=== PATIENT | female | born 1945 | race Two or more races ===

== ENCOUNTER 2022-07-06 21:17 | Inpatient (IN) | payer MEDICARE ==
[~2022-07-06] VITALS: Ht 152.4 cm; Wt 48.5 kg
--- NOTE | 2022-07-06 21:30 | NUR ---
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 AAOx4 All needs attended. VSS. Left hip dressing intact, no ronnie. Abduction pillow in between legs. Fall precautions maintained. Lacey catheter intact draining yellow urine. I & O monitor. Hx of HTN, pacemaker, right hip surgery. Skin intact. Incontinent of large BM this shift. Kept clean and dry. Dr Null aware of patient's admission. HAYDEN Gonzalez also aware of patient's admission to Rehab. Was asked to reconcile meds. Patient has a Rt arm heplock #20 flushed well and patent. Prior to admission, she was transfused with 1 unit PRBC in S[place] with a hgb 7.4 Hct 23. Will monitor patient.
[2022-07-06] MEDS ORDERED: REMEDY ESSENTIAL ZINC PASTE 113 GM TOP PRN (22:00)
[2022-07-06] MEDS ORDERED: LOSA100T31 PO (22:44)
[2022-07-06] MEDS ORDERED: ENOX40DI SQ (22:44)
[2022-07-06] MEDS ORDERED: PANT40TA2 PO (22:44)
[2022-07-06] MEDS ORDERED: METO-356 PO (22:44)
[2022-07-06] MEDS ORDERED: HYDR20VI6 IV (22:44)
[2022-07-06] MEDS ORDERED: MORP2CAR IV (22:44)
[2022-07-06] MEDS ORDERED: ACET-2154 PO (22:44)
[2022-07-06] MEDS ORDERED: MAGN400O6 PO (22:44)
[2022-07-06] MEDS ORDERED: LACT-246 PO (22:44)
[2022-07-06] MEDS ORDERED: AMLO10TA59 PO (22:44)
[2022-07-06] MEDS ORDERED: ONDA4AMP IV (22:44)
[2022-07-06] MEDS ORDERED: HYDR-3972 PO (22:44)
[2022-07-07 07:31] VITALS: BP 126/72
[2022-07-07] MEDS ORDERED: ACETAMINOPHEN 325 MG TABLET-SA PATIENTS-PAIN ONLY PO PRN (08:15)
[2022-07-07] MEDS ORDERED: MAGNESIUM HYDROXIDE 30 ML LIQUID UDC PO PRN (08:15)
[2022-07-07] MEDS: OXYCODONE HCL 5 MG TABLET PO PRN ×3 (08:34→09:45)
[2022-07-07] MEDS ORDERED: ENOXAPARIN SODIUM 40 MG/0.4 ML DISP.SYRIN SQ SCH (09:00)
[2022-07-07] MEDS: LOSARTAN POTASSIUM 50 MG TABLET PO SCH (09:08)
[2022-07-07] MEDS: AMLODIPINE 10 MG TABLET PO SCH (09:09)
[2022-07-07] MEDS: METOPROLOL SUCCINATE XL 25 MG TAB.SR.24H PO SCH (09:34)
[2022-07-07] MEDS: ENOXAPARIN SODIUM 30 MG/0.3 ML DISP.SYRIN SUBCUT SCH (09:35)
[2022-07-07] MEDS: ENSURE ENLIVE (VAN) 240 ML LIQUID PO SCH ×2 (12:06→18:12)
[2022-07-07 16:00] VITALS: BP 108/49
[2022-07-07] MEDS: FERROUS SULFATE 325 MG TABEC PO SCH (17:21)
--- NOTE | 2022-07-07 19:21 | NUR ---
Patient alert and Ox4, able to verbalize her needs and follow directions. Medications were finalized by Dr. Otto Mata. Patient with s/p left hip surgery, site with clean DD in place. No s/s of bleeding noted. Assessed patient for pain and patient stated she is experiencing pain and stated pain level at 7-8/10, patient requested pain medication and upon offering pain medication as ordered based on her pain level. Patient refused medication. Medication was returned to [facility] as protocol. NPI done and reassessed patient's pain level and patient stated to be "ok" and comfortable. Patient ate and consumed fluids well. No c/o n/v. No s/s of hyp/HTN. Assisted to the bedside commode and had a BM and voided well. Care provided at routine intervals and as needed. Assisted patient to make a phone call to her daughter (Ava) all needs anticipated and met.
[2022-07-07 20:00] VITALS: BP 110/41
[2022-07-07] MEDS: DOCUSATE SODIUM 100 MG CAPSULE PO SCH (21:00)
--- NOTE | 2022-07-07 23:00 | NUR ---
1915- Patient alert and Ox4, able to verbalize her needs and follow directions. Patient with s/p left hip surgery, site with clean dressing in place. No signs of bleeding noted. The patient has an abductor pillow to prevent crossing of legs. The patient has a patent IV access 20g rfa. The patient has a clifford catheter that is clean, intact, and below the baldder. Care provided at routine intervals and as needed. Call light within reach, bed alarm on, two side rails up, bed at lowest position, and wheels locked. Will continue to monitor throughout the shift. 2200- The patient has no complains of pain. The patient request for water. Item is given to the patient. The patient has no sob or complains of pain. Will continue to monitor throughout the shift. 0200- The patient request for an extra pillow. Item is given to the patient. The patient has no sob. Will continue to monitor throughout the shift. 0500- The patient is resting comfortably. The patient has no complains of pain. Will continue to monitor throughout the shift.
[2022-07-08] MEDS: PANTOPRAZOLE SODIUM 40 MG TABLET.DR PO SCH (06:19)
[2022-07-08 06:35] VITALS: BP 123/51
[2022-07-08 07:36] VITALS: BP 121/43
[2022-07-08] MEDS: ENSURE ENLIVE (VAN) 240 ML LIQUID PO SCH ×3 (08:23→18:43)
[2022-07-08] MEDS: LOSARTAN POTASSIUM 50 MG TABLET PO SCH ×2 (09:00→09:03)
[2022-07-08] MEDS: FERROUS SULFATE 325 MG TABEC PO SCH ×2 (09:01→16:29)
[2022-07-08] MEDS: METOPROLOL SUCCINATE XL 25 MG TAB.SR.24H PO SCH ×2 (09:01→09:04)
[2022-07-08] MEDS: AMLODIPINE 10 MG TABLET PO SCH ×2 (09:02→09:04)
[2022-07-08] MEDS: ENOXAPARIN SODIUM 30 MG/0.3 ML DISP.SYRIN SUBCUT SCH (09:03)
[2022-07-08] MEDS: OXYCODONE HCL 5 MG TABLET PO PRN (10:46)
[2022-07-08 11:53] LABS: HEMATOCRIT 25.7 % (31.2-41.9); MEAN CORPUSCULAR HEMOGLOBIN 29.4 uug (24.7-32.8); MEAN CORPUSCULAR VOLUME 89.8 fL (75.5-95.3); PLATELET COUNT (AUTO) 235 K/uL (179-408)
[2022-07-08 12:14] LABS: CREATININE 1.1 mg/dL (0.6-1.3); POTASSIUM 4.1 mmol/L (3.5-5.1)
[2022-07-08 12:20] LABS: BILIRUBIN,TOTAL 0.3 mg/dL (0.2-1.0)
[2022-07-08 16:08] VITALS: BP 108/48
--- NOTE | 2022-07-08 19:05 | NUR ---
Patient A/Ox4, verbalizes her needs and follows directions. Medicated during shift PRN for her pain level needs as ordered by MD. and effective. Patient ate meals well and took fluids as offered; Patient rec'd PT/OT skilled services and roberto. fairly. Patient is continent of BM and uses bedside commode with one persons assist. Extensive assist provided with ADLS and at all times, dressing to left hip surgical site provided as ordered. All needs anticipated and met.
[2022-07-08 21:00] VITALS: BP 110/34
[2022-07-08] MEDS: DOCUSATE SODIUM 100 MG CAPSULE PO SCH (21:30)
--- NOTE | 2022-07-08 23:00 | NUR ---
1920- Patient alert and Ox4, able to verbalize her needs and follow directions. Patient with s/p left hip surgery, site with clean dressing in place. No signs of bleeding noted. The patient has an abductor pillow to prevent crossing of legs. The patient has a clifford catheter that is clean, intact, and below the bladder. Care provided at routine intervals and as needed. Call light within reach, bed alarm on, two side rails up, bed at lowest position, and wheels locked. Will continue to monitor throughout the shift. 0000- The patient has no complains of pain. The patient request for water. Item is given to the patient. The patient has no sob or complains of pain. Will continue to monitor throughout the shift. 0500- The patient is resting comfortably. The patient has no complains of pain. Will continue to monitor throughout the shift.
[2022-07-09 04:28] VITALS: BP 116/46
[2022-07-09] MEDS: PANTOPRAZOLE SODIUM 40 MG TABLET.DR PO SCH (06:23)
[2022-07-09 08:00] VITALS: BP 129/45
[2022-07-09] MEDS: ENOXAPARIN SODIUM 30 MG/0.3 ML DISP.SYRIN SUBCUT SCH (08:21)
[2022-07-09] MEDS: FERROUS SULFATE 325 MG TABEC PO SCH ×2 (09:15→16:24)
[2022-07-09] MEDS: ENSURE ENLIVE (VAN) 240 ML LIQUID PO SCH ×3 (09:15→16:25)
[2022-07-09] MEDS: AMLODIPINE 10 MG TABLET PO SCH (09:18)
[2022-07-09] MEDS: METOPROLOL SUCCINATE XL 25 MG TAB.SR.24H PO SCH (09:19)
--- NOTE | 2022-07-09 14:33 | NUR ---
INDIVIDUALIZED PLAN OF CARE
[2022-07-09 15:55] VITALS: BP 126/41
--- NOTE | 2022-07-09 16:25 | NUR ---
patient is alert, oriented x4, no sob, respirations are even nonlabored, skin warm and dry to touch, dressing changed to left hip incision, dry clean, no drainage, no bleeding, well approximated, clifford discontinued as per order and for bladder and bowel training. will continue to monitor.
[2022-07-09 20:41] VITALS: BP 115/36
[2022-07-09] MEDS: DOCUSATE SODIUM 100 MG CAPSULE PO SCH (21:00)
[2022-07-09] MEDS: ACETAMINOPHEN 325 MG TABLET PO PRN (21:20)
--- NOTE | 2022-07-09 23:00 | NUR ---
1924- Patient alert and Ox4, able to verbalize her needs and follow directions. Patient with s/p left hip surgery, site with clean dressing in place. No signs of bleeding noted. The patient has an abductor pillow to prevent crossing of legs. Care provided at routine intervals and as needed. Call light within reach, bed alarm on, two side rails up, bed at lowest position, and wheels locked. Will continue to monitor throughout the shift. 0100- The patient has no complains of pain. The patient request for water. Item is given to the patient. The patient has no sob or complains of pain. Will continue to monitor throughout the shift. 0600- The patient is resting comfortably. The patient has no complains of pain. Will continue to monitor throughout the shift.
[2022-07-10 04:30] VITALS: BP 114/46
[2022-07-10] MEDS: PANTOPRAZOLE SODIUM 40 MG TABLET.DR PO SCH (06:42)
[2022-07-10 07:46] VITALS: BP 128/41
[2022-07-10 08:00] VITALS: BP 116/5
[2022-07-10] MEDS: LOSARTAN POTASSIUM 50 MG TABLET PO SCH (09:00)
[2022-07-10] MEDS: FERROUS SULFATE 325 MG TABEC PO SCH ×2 (09:00→17:00)
[2022-07-10] MEDS: ENOXAPARIN SODIUM 30 MG/0.3 ML DISP.SYRIN SUBCUT SCH (09:00)
[2022-07-10] MEDS: OXYCODONE HCL 5 MG TABLET PO PRN (09:40)
[2022-07-10 16:37] VITALS: BP 113/57
[2022-07-10] MEDS: GLUCERNA SHAKE 237 ML CAN PO SCH (17:08)
--- NOTE | 2022-07-10 17:32 | NUR ---
SHIFT NOTE: RECEIVED PATIENT IN AM ALERT AND ORIENTED X4 PT WAS TAKING PT AND WAS IN SEVERE PAIN PT WAS GIVEN OXYIR 10MG PO AFTERWARDS CONTINUE PT. PT REFUSED TO MOVED TO ANOTHER ROOM " STATES I AM [place] CIT[place] AND INFORMED PATIENT SHE CAN STAY IN THE ROOM TOLD PATIENT IT DOESN'T HAVE A FUNCTIONAL PHONE SHE SAID SHE DID WANT TO BE MOVE. PT. Addendum: 07/10/22 at 1801 by [facility] IN[facility] RN11 RN PT SAID SHE DIDN'T WANT TO MOVE OUT OF HER ROOM SHE LIKE WHERE SHE IS. PT IS SITTING IN WHEEL CHAIR DIDN'T WANT TO GO BACK TO BED. WILL ENDORSETO NURSE NO SIGNS OF DISTRESS NOTED. WILL CONTINUE MONITOR FOR SAFETY AND FALLS.
[2022-07-10 20:00] VITALS: BP 119/47
[2022-07-10] MEDS: DOCUSATE SODIUM 100 MG CAPSULE PO SCH (21:00)
[2022-07-11 04:00] VITALS: BP 106/35
[2022-07-11] MEDS: OXYCODONE HCL 5 MG TABLET PO PRN (04:20)
[2022-07-11 08:06] VITALS: BP 143/76
[2022-07-11] MEDS: ENOXAPARIN SODIUM 30 MG/0.3 ML DISP.SYRIN SUBCUT SCH (08:18)
[2022-07-11] MEDS: AMLODIPINE 10 MG TABLET PO SCH (08:19)
[2022-07-11] MEDS: FERROUS SULFATE 325 MG TABEC PO SCH (08:19)
[2022-07-11] MEDS: LOSARTAN POTASSIUM 50 MG TABLET PO SCH (08:20)
[2022-07-11] MEDS: GLUCERNA SHAKE 237 ML CAN PO SCH ×2 (08:20→17:13)
[2022-07-11] MEDS: METOPROLOL SUCCINATE XL 25 MG TAB.SR.24H PO SCH (08:21)
--- NOTE | 2022-07-11 09:50 | NUR ---
0730-Rec'd patient in bed, awake, A/Ox4, verbalizes needs and follows directions, denies pain at this time. On R/A & roberto. well, no s/s of resp. distress. Oral fluids taken well. Call light at reach and encouraged to use it every time help is needed with good understanding. 0855-Patient ate 75% of her breakfast, roberto. well, denies any N/V/GI distress., Scheduled medication offered as ordered; patient refused to take:Cozaar, Norvasc, Toprol and Feosol. Risks vs benefits explained, good verbal demonstration in understanding recd'd from patient, offered medication x3. Informed patient that her blood pressure is 143/73, HR 63 & complaince4 with treatment and medication are important for the maintenance of hypertension DSE patient stated, "I do not have any problems with my blood pressure". Wishes and choices respected. Patient denies any headache, dizziness, N/V. Will monitor and follow up according plan of care.
--- NOTE | 2022-07-11 10:34 | NUR ---
0930-OOB ambulating in the hallway using a FWW and with PT, roberto well, actively able to participate in therapy.
[2022-07-11 16:39] VITALS: BP 159/63
[2022-07-11 16:42] VITALS: BP 121/42
[2022-07-11] MEDS: PANTOPRAZOLE SODIUM 40 MG TABLET.DR PO SCH (19:00)
--- NOTE | 2022-07-11 19:20 | NUR ---
Left hip surgical dressing changed. No s/s of bleeding or infection. Patient roberto. well, denies pain. Assisted to bedside commode as needed. Care provided at routine intervals and as needed. All needs anticipated and met in a promptly manner.
[2022-07-11 20:00] VITALS: BP 111/45
[2022-07-11] MEDS: DOCUSATE SODIUM 100 MG CAPSULE PO SCH (21:00)
[2022-07-12] MEDS: OXYCODONE HCL 5 MG TABLET PO PRN (01:59)
[2022-07-12 04:00] VITALS: BP 117/58
--- NOTE | 2022-07-12 06:00 | NUR ---
Patient asleep no sob no chest pain, complain of 8/10 pain on left hip, medicated for pain with effective results, kept clean dry and comfortable, cont to monitor.
[2022-07-12] MEDS: PANTOPRAZOLE SODIUM 40 MG TABLET.DR PO SCH ×2 (06:12→06:27)
[2022-07-12 07:42] VITALS: BP 124/44
[2022-07-12] MEDS: GLUCERNA SHAKE 237 ML CAN PO SCH ×2 (08:06→17:23)
[2022-07-12] MEDS: FERROUS SULFATE 325 MG TABEC PO SCH ×2 (08:38→16:36)
[2022-07-12] MEDS: METOPROLOL SUCCINATE XL 25 MG TAB.SR.24H PO SCH (08:38)
[2022-07-12] MEDS: AMLODIPINE 10 MG TABLET PO SCH (08:39)
[2022-07-12] MEDS: LOSARTAN POTASSIUM 50 MG TABLET PO SCH (08:39)
[2022-07-12] MEDS: ENOXAPARIN SODIUM 30 MG/0.3 ML DISP.SYRIN SUBCUT SCH (08:43)
[2022-07-12 16:00] VITALS: BP 135/36
--- NOTE | 2022-07-12 19:17 | NUR ---
Patient with no ALONDRA during shift, continues under rehab for PT/OT skilled services. Patient tolerated therapy well and actively able to participate in therapy. Fall precautions observed. Call light answered promptly and timely. Assisted patient with ADLS and at all times. Patient tolerated meals well and took fluids as offered. Compliant with medication and treatment. Left hip surgical site healing well, no bleeding or s/s of infection noted. Treatment done as ordered/picture updated; endorsed to incoming relieving RN. All needs anticipated and met.
[2022-07-12 20:00] VITALS: BP 111/51
[2022-07-12] MEDS: DOCUSATE SODIUM 100 MG CAPSULE PO SCH (21:21)
[2022-07-13 04:00] VITALS: BP 131/45
--- NOTE | 2022-07-13 04:53 | NUR ---
Pt been in stable condition, vital signs within normal level, call light within reach, bed in low position. Pt has stool OB collection, no poop yet. will notify the morning RN.
--- NOTE | 2022-07-13 05:27 | NUR ---
Pt refused the abduction pillow between the legs, asked why, she said because i can't cross my legs. Explained pt that pillow for that to prevent crossing, but she said "no'.
[2022-07-13] MEDS: PANTOPRAZOLE SODIUM 40 MG TABLET.DR PO SCH (07:00)
--- NOTE | 2022-07-13 07:14 | NUR ---
Stool OB collected.
[2022-07-13 08:04] LABS: HEMATOCRIT 28.7 % (31.2-41.9); MEAN CORPUSCULAR HEMOGLOBIN 29.6 uug (24.7-32.8); MEAN CORPUSCULAR VOLUME 90.5 fL (75.5-95.3); PLATELET COUNT (AUTO) 376 K/uL (179-408)
[2022-07-13] MEDS: GLUCERNA SHAKE 237 ML CAN PO SCH ×2 (08:12→16:58)
[2022-07-13 08:30] LABS: THYROID STIMULATING HORMONE 1.908 mIU/mL (0.358-3.740)
[2022-07-13 08:45] LABS: BILIRUBIN,TOTAL 0.3 mg/dL (0.2-1.0); MAGNESIUM 2.2 mg/dL (1.8-2.4); POTASSIUM 4.1 mmol/L (3.5-5.1); TOTAL PROTEIN, SERUM 7.2 g/dL (6.4-8.2)
[2022-07-13 09:00] VITALS: BP 140/49
[2022-07-13] MEDS: FERROUS SULFATE 325 MG TABEC PO SCH ×3 (09:00→16:58)
[2022-07-13] MEDS: LOSARTAN POTASSIUM 50 MG TABLET PO SCH ×2 (09:00→09:15)
[2022-07-13] MEDS: AMLODIPINE 10 MG TABLET PO SCH ×2 (09:00→09:15)
--- NOTE | 2022-07-13 09:15 | NUR ---
Pt refused ALL her morning medication. I asked her about each one individually and she refused each one. and ARU team aware.
[2022-07-13] MEDS: METOPROLOL SUCCINATE XL 25 MG TAB.SR.24H PO SCH ×2 (09:16→09:59)
[2022-07-13] MEDS: ENOXAPARIN SODIUM 30 MG/0.3 ML DISP.SYRIN SUBCUT SCH ×2 (09:18→09:59)
[2022-07-13 10:12] LABS: *OCCULT BLOOD STOOL NEGATIVE (NEGATIVE)
--- NOTE | 2022-07-13 14:48 | NUR ---
INTERDISCIPLINARY TEAM CONFERENCE
[2022-07-13 16:00] VITALS: BP 118/52
--- NOTE | 2022-07-13 16:04 | NUR ---
Pt stated that she has peed 3 times this shift, including recently. No bladder scan needed at this time.
[2022-07-13] MEDS: OXYCODONE HCL 5 MG TABLET PO PRN (18:40)
[2022-07-13] MEDS: DOCUSATE SODIUM 100 MG CAPSULE PO SCH (21:35)
[2022-07-13 23:54] VITALS: BP 101/41
--- NOTE | 2022-07-14 05:59 | NUR ---
Pt refusing the Meds, by stating that it is damaging her stomach. Pt able to pee, no catheterization needed in this time. All needs are attended and met.
[2022-07-14 06:27] VITALS: BP 118/44
[2022-07-14] MEDS: PANTOPRAZOLE SODIUM 40 MG TABLET.DR PO SCH (07:00)
[2022-07-14 08:00] VITALS: BP 133/48
[2022-07-14] MEDS: GLUCERNA SHAKE 237 ML CAN PO SCH ×2 (08:16→17:34)
[2022-07-14] MEDS: AMLODIPINE 10 MG TABLET PO SCH (08:16)
[2022-07-14] MEDS: FERROUS SULFATE 325 MG TABEC PO SCH ×2 (08:16→16:35)
[2022-07-14] MEDS: LOSARTAN POTASSIUM 50 MG TABLET PO SCH (08:16)
[2022-07-14] MEDS: METOPROLOL SUCCINATE XL 25 MG TAB.SR.24H PO SCH (08:17)
[2022-07-14] MEDS: ENOXAPARIN SODIUM 30 MG/0.3 ML DISP.SYRIN SUBCUT SCH (08:17)
[2022-07-14] MEDS: NUTRISOURCE FIBER 4 GM PACKET PO SCH (15:01)
[2022-07-14 16:00] VITALS: BP 117/42
--- NOTE | 2022-07-14 19:48 | NUR ---
RECEIVED REPORT FROM JL MAYEN.
[2022-07-14 20:00] VITALS: BP 102/46
[2022-07-14] MEDS: DOCUSATE SODIUM 100 MG CAPSULE PO SCH (20:36)
[2022-07-15 04:00] VITALS: BP 115/49
[2022-07-15] MEDS: PANTOPRAZOLE SODIUM 40 MG TABLET.DR PO SCH (06:40)
--- NOTE | 2022-07-15 07:20 | NUR ---
REPORT GIVEN TO ALPHONSO MAYEN.
[2022-07-15 08:00] VITALS: BP 130/44
--- NOTE | 2022-07-15 08:00 | NUR ---
0730-REC'D PATIENT IN BED, AWAKE, A/OX3-4, PATIENT IN BED IN A SITTING POSITION AND DRINKING WATER. PATIENT DENIES ANY PAIN, NO RESPIRATORY DISTRESS NOTED. SAFETY MEASURES IN PLACE AND CALL LIGHT AT REACH, ENCOURAGED TO USE IT EVERY TIME HELP IS NEEDED.
[2022-07-15] MEDS: GLUCERNA SHAKE 237 ML CAN PO SCH ×2 (08:08→17:02)
[2022-07-15] MEDS: FERROUS SULFATE 325 MG TABEC PO SCH ×2 (09:02→17:01)
[2022-07-15] MEDS: AMLODIPINE 10 MG TABLET PO SCH (09:03)
[2022-07-15] MEDS: LOSARTAN POTASSIUM 50 MG TABLET PO SCH (09:03)
[2022-07-15] MEDS: METOPROLOL SUCCINATE XL 25 MG TAB.SR.24H PO SCH (09:03)
[2022-07-15] MEDS: ENOXAPARIN SODIUM 30 MG/0.3 ML DISP.SYRIN SUBCUT SCH (09:04)
[2022-07-15] MEDS: NUTRISOURCE FIBER 4 GM PACKET PO SCH (09:05)
[2022-07-15 16:00] VITALS: BP 103/51
--- NOTE | 2022-07-15 18:40 | NUR ---
Patient in bed, awake, A/Ox3, continues under rehab for PT/OT skilled services and making good progress. Patient's daughter visited during shift/in AM during therapy. Patient ambulated in the hallway, using FWW and a therapist assist. No ALONDRA noted. Assisted with ADLs and as needed.LT hip s/p ORIF surgical site, dressing changed. Affected area healing well, no bleeding or drainage noted. All needs anticipated and met. Endorsed to incoming relieving RN.
[2022-07-15 20:00] VITALS: BP 114/46
[2022-07-15] MEDS: DOCUSATE SODIUM 100 MG CAPSULE PO SCH (20:35)
[2022-07-16 04:00] VITALS: BP 118/49
--- NOTE | 2022-07-16 05:40 | NUR ---
AAOxs2-3 Patient non compliant with care and meds. Refused to have male ALUMINUM HYDROXIDE PROCESS OPERATOR. Incontinent of bowel and bladder. No BM this shift. Patient been refusing meds. Offerred pain meds, refused to take. Will monitor patient. No acute distress noted. Fall precautions maintained. Call ca within reach. Siderails up for safety. VSS.
[2022-07-16] MEDS: PANTOPRAZOLE SODIUM 40 MG TABLET.DR PO SCH (06:08)
[2022-07-16 08:00] VITALS: BP 110/54
[2022-07-16] MEDS: GLUCERNA SHAKE 237 ML CAN PO SCH ×2 (08:45→17:34)
[2022-07-16] MEDS: LOSARTAN POTASSIUM 50 MG TABLET PO SCH (09:00)
[2022-07-16] MEDS: AMLODIPINE 10 MG TABLET PO SCH (10:00)
[2022-07-16] MEDS: NUTRISOURCE FIBER 4 GM PACKET PO SCH (10:00)
[2022-07-16] MEDS: METOPROLOL SUCCINATE XL 25 MG TAB.SR.24H PO SCH (10:00)
[2022-07-16] MEDS: FERROUS SULFATE 325 MG TABEC PO SCH ×2 (10:00→17:00)
[2022-07-16] MEDS: ENOXAPARIN SODIUM 30 MG/0.3 ML DISP.SYRIN SUBCUT SCH (10:00)
--- NOTE | 2022-07-16 18:55 | NUR ---
SHIFT NOTE: RECEIVED REPORT FROM PERSONNEL ADVISER NURSE PATIENT IS ALERT AND ORIENTED X4 NO SIGNS OF DISTRESS NOTED PATIENT REFUSED ALL MEDICATION AND WAS ASSISTED OFF BED SIDE COMMODE HAD LARGE STOOL NO SIGNS OF DISTRESS NOTED. WILL CONTINUE TO MONITOR FOR SAFETY.AND ENDORSE TO PERSONNEL ADVISER NURSE.
[2022-07-16 20:30] VITALS: BP 151/48
[2022-07-16] MEDS: DOCUSATE SODIUM 100 MG CAPSULE PO SCH (21:25)
[2022-07-17] MEDS: HYDROCODONE/APAP 5-325MG TABLET PO PRN ×2 (00:37→22:10)
[2022-07-17 04:39] VITALS: BP 111/70
[2022-07-17] MEDS: PANTOPRAZOLE SODIUM 40 MG TABLET.DR PO SCH (07:00)
[2022-07-17 07:48] VITALS: BP 124/48
--- NOTE | 2022-07-17 08:00 | NUR ---
Received pt. in bed awake. alert and oriented. No signs of distress and discomfort. No complain at the moment. Vital signs stable. Needs attended
[2022-07-17] MEDS: AMLODIPINE 10 MG TABLET PO SCH (09:00)
[2022-07-17] MEDS: METOPROLOL SUCCINATE XL 25 MG TAB.SR.24H PO SCH (09:00)
[2022-07-17] MEDS: LOSARTAN POTASSIUM 50 MG TABLET PO SCH (09:00)
[2022-07-17] MEDS: FERROUS SULFATE 325 MG TABEC PO SCH ×2 (09:00→17:00)
[2022-07-17] MEDS: GLUCERNA SHAKE 237 ML CAN PO SCH ×2 (09:33→17:23)
[2022-07-17] MEDS: NUTRISOURCE FIBER 4 GM PACKET PO SCH (09:33)
[2022-07-17] MEDS: ENOXAPARIN SODIUM 30 MG/0.3 ML DISP.SYRIN SUBCUT SCH (09:48)
[2022-07-17 16:06] VITALS: BP 109/46
--- NOTE | 2022-07-17 17:24 | NUR ---
Patient refused oral medications, charge nurse informed. Observed accordingly
[2022-07-17 20:00] VITALS: BP 111/59
[2022-07-17] MEDS: DOCUSATE SODIUM 100 MG CAPSULE PO SCH (22:11)
[2022-07-18 04:00] VITALS: BP 116/55
[2022-07-18] MEDS: PANTOPRAZOLE SODIUM 40 MG TABLET.DR PO SCH (07:30)
[2022-07-18 07:56] VITALS: BP 159/69
[2022-07-18] MEDS: NUTRISOURCE FIBER 4 GM PACKET PO SCH (09:00)
[2022-07-18] MEDS: FERROUS SULFATE 325 MG TABEC PO SCH ×2 (09:00→17:00)
[2022-07-18] MEDS: AMLODIPINE 10 MG TABLET PO SCH (09:00)
--- NOTE | 2022-07-18 10:01 | NUR ---
Patient refused AM medications. Patient states: "I do not take any medications in the morning." RN educates the importance of each medication. Patient verbalized understanding and still refused. RN notifies shearing shed workerBennett. Patient is stable at this time.
[2022-07-18] MEDS: METOPROLOL SUCCINATE XL 25 MG TAB.SR.24H PO SCH (10:04)
[2022-07-18] MEDS: GLUCERNA SHAKE 237 ML CAN PO SCH ×2 (10:06→19:20)
[2022-07-18] MEDS ORDERED: HYDROCODONE/APAP 7.5-325MG TABLET PO PRN (13:45)
[2022-07-18 15:17] VITALS: BP 109/47
[2022-07-18] MEDS: RIVAROXABAN 10 MG TABLET PO SCH (18:00)
--- NOTE | 2022-07-18 18:45 | NUR ---
Patient refused 1700 medications. RN educates the importance of each medication. Patient verbalized understanding and still refused. RN notifies metal patternmaker apprenticeBennett. Patient is stable at this time.
[2022-07-18 20:00] VITALS: BP 109/44
--- NOTE | 2022-07-18 20:22 | NUR ---
RECEIVED REPORT FROM FAHEEM MONK, NOC SHIFT. PATIENT IS ALERT & ORIENTED X4, AND SPEAKS CROATIAN. VITAL SIGNS STABLE. PATIENT HAD COMPLAINT OF PAIN. PATIENT REFUSES PAIN MEDICATIONS. RN EDUCATES THE MEDICATION REFUSAL. PATIENT VERBALIZES UNDERSTANDING. PATIENT PARTICIPATES WITH PHYSICAL AND OCCUPATIONAL THERAPY SCHEDULED. PATIENT TOLERATES PO AND DIET WELL, HOWEVER SHE DOES NOT LIKE HER DIET. SALES ADVISORY MANAGER TALKS TO PATIENT. RN PROVIDED ENSURE TO HELP MAINTAIN PATIENT'S NUTRITION. NO ACUTE DISTRESS. ALL NEEDS MET AT THIS TIME. FALL PRECAUTIONS OBSERVED. CALL LIGHT WITHIN REACH. ENDORSED CARE TO ELSY RUIZ RN, NOC SHIFT FOR CONTINUATION OF CARE.
[2022-07-18] MEDS: DOCUSATE SODIUM 100 MG CAPSULE PO SCH (21:58)
[2022-07-19] MEDS: ACETAMINOPHEN 325 MG TABLET PO PRN (00:30)
[2022-07-19 04:00] VITALS: BP 101/42
[2022-07-19] MEDS: PANTOPRAZOLE SODIUM 40 MG TABLET.DR PO SCH (06:17)
[2022-07-19 07:37] VITALS: BP 141/50
[2022-07-19] MEDS: METOPROLOL SUCCINATE XL 25 MG TAB.SR.24H PO SCH (08:17)
[2022-07-19] MEDS: FERROUS SULFATE 325 MG TABEC PO SCH ×2 (08:17→16:52)
[2022-07-19] MEDS: AMLODIPINE 10 MG TABLET PO SCH (08:18)
[2022-07-19] MEDS: GLUCERNA SHAKE 237 ML CAN PO SCH ×2 (08:18→16:52)
[2022-07-19 15:57] VITALS: BP 123/46
[2022-07-19] MEDS: RIVAROXABAN 10 MG TABLET PO SCH (17:35)
--- NOTE | 2022-07-19 17:57 | NUR ---
Patient alert and oriented x4, able to communicate her needs promptly and timely, denies pain or discomfort. No respiratory distress noted. OOB daily, ambulating ad ayden with rehab PT/OT and roberto. well. Patient actively able to participate in therapy and making progress/improvement physically. Patient requires of one person's assist with ADLs, needs anticipated and met. OOB and sitting on the W/C in her room with close nursing supervision. Assisted to the bathroom as needed, voiding well. No BM today. Medication administered as scheduled during the shift. Patient compliant with medication/treatment and care. No ALONDRA noted, patient remains within her usual baseline status. Covid - 19 test done today with plan of DC tomorrow.
[2022-07-19 20:00] VITALS: BP 105/51
[2022-07-19] MEDS: DOCUSATE SODIUM 100 MG CAPSULE PO SCH (20:01)
[2022-07-20 04:00] VITALS: BP 120/44
[2022-07-20] MEDS: PANTOPRAZOLE SODIUM 40 MG TABLET.DR PO SCH ×2 (06:13→06:32)
[2022-07-20 08:00] VITALS: BP 141/61
[2022-07-20] MEDS: GLUCERNA SHAKE 237 ML CAN PO SCH (08:49)
[2022-07-20 08:50] VITALS: BP 120/44
[2022-07-20] MEDS: AMLODIPINE 10 MG TABLET PO SCH (08:50)
[2022-07-20] MEDS: METOPROLOL SUCCINATE XL 25 MG TAB.SR.24H PO SCH (08:50)
[2022-07-20] MEDS: FERROUS SULFATE 325 MG TABEC PO SCH (08:51)
[2022-07-20] MEDS: ACETAMINOPHEN 325 MG TABLET PO PRN (09:14)
--- NOTE | 2022-07-20 11:43 | NUR ---
0730-Rec'd patient in bed, awake, alert and oriented, able to communicate needs and follows simple direction., Patient denies any pain or discomfort, oral fluids encouraged as roberto. and taken well. Safety measures in place and call light at reach. 0900-Patient completed her breakfast, finished all meal. No c/o GI distress, scheduled medications administered as ordered with no ASE noted. OOB with rehab ambulating ad ayden in hallway using FWW. Patient to be discharge today and going to [facility].
--- NOTE | 2022-07-20 14:59 | NUR ---
2:20pm-PATIENT WAS PICKED BY [facility] AND TRANSPORTED TO [facility] ORDERED BY . FULL REPORT GIVEN TO silver wrapper REGARDING PATIENT'S DIAGNOSIS/CONDITION. DISCHARGE PAPERWORK PACKET GIVEN TO EMT'S PROTOCOL. INVENTORY LIST SIGNED AND ALL BELONGINGS TAKEN. PATIENT LEFT IN GOOD STABLE CONDITIONS. DENIES PAIN, NO RESPIRATORY DISTRESS NOTED. PATIENT WAS ASSISTED TO [facility] SAFELY AND [facility]. WELL. NO C/O PAIN, HEADACHE OR DIZZINESS, VSS.
== END 2022-07-20 14:35 | DRG 559 ==
PROVIDERS: ADMIT Physical Medicine & Rehabilitation Pain Medicine; ATTEND Physical Medicine & Rehabilitation Pain Medicine
DX: S72.002D Fracture of unspecified part of neck of left femur, subsequent encounter for closed fracture with routine healing (principal); E43 Unspecified severe protein-calorie malnutrition; N17.0 Acute kidney failure with tubular necrosis; D62 Acute posthemorrhagic anemia; D68.59 Other primary thrombophilia; Z96.641 Presence of right artificial hip joint; W18.30XD Fall on same level, unspecified, subsequent encounter; D50.9 Iron deficiency anemia, unspecified; E86.1 Hypovolemia; Z95.0 Presence of cardiac pacemaker; I11.9 Hypertensive heart disease without heart failure
CPT/HCPCS: 36415; 73502; 83550; 83735; 84100; 84443; 85025; 97535-GO-CO; A4663; A6209; A6213; J1650